=== PATIENT | female | born 1955 | race Caucasian/White ===

== ENCOUNTER 2020-01-10 15:28 | Emergency (ER) | payer BC, SELFPAY ==
--- NOTE | ~2020-01-10 | XR_ITS ---
EXAMINATION: XR shoulder RT min 2V DATE: 01/10/2020 16:27 INDICATION: Right shoulder pain. TECHNIQUE: 3 views of right shoulder were obtained. COMPARISON: None. FINDINGS: Bone alignment is normal. No fracture. There is mild osteoarthritis of glenohumeral joint a nd severe osteoarthritis of the acromioclavicular joint. There is calcific tendinitis of right rotato r cuff. IMPRESSION: 1. Polyarticular osteoarthritis. 2. Calcific tendinitis of right rotator cuff. Reviewed, dictated and finalized at location A.
[2020-01-10 15:43] VITALS: BP 133/86; PULSE 80; RESP 18; TEMP 36.6; O2SAT 98
--- NOTE | 2020-01-10 15:49 | ED.UPPEXIN ---
HPI - Extremity Injury (Upper) General Chief Complaint: Extremity Injury, Upper Stated Complaint: pain in right shoulder Time Seen by Provider: 01/10/20 15:55 Source: patient and RN notes reviewed Mode of arrival: ambulatory Limitations: no limitations History of Present Illness HPI narrative: 64-year-old female presents with concern for right shoulder pain. She reports pain is been present for a week and has been worsening. Reports pain with range of motion, decreased strength. She denies injury or trauma. Reports pain is in the joint and radiates down the right arm. Reports pain is exacerbated with any movement. Reports she has been taking anti-inflammatories with little to no relief. MD complaint: injury to: right and shoulder Related Data Home Medications Medication Instructions Recorded Confirmed Flonase Allergy Relief 01/10/20 amitriptyline 01/10/20 bupropion HCl PO 01/10/20 buspirone mg 01/10/20 cyclobenzaprine mg 01/10/20 duloxetine mg PO 01/10/20 levothyroxine 01/10/20 ocrelizumab [Ocrevus] 600 mg IV [id number] 01/10/20 01/10/20 telmisartan-hydrochlorothiazid tablet 01/10/20 valacyclovir 01/10/20 Allergies Allergy/AdvReac Type Severity Reaction Status Date / Time adhesive Allergy Mild Verified 07/08/19 08:09 bacitracin Allergy Mild Verified 07/08/19 08:09 gramicidin D Allergy Mild Verified 07/08/19 08:09 neomycin Allergy Mild Verified 07/08/19 08:09 Penicillins Allergy Mild Verified 07/08/19 08:09 polymyxin B Allergy Mild Verified 07/08/19 08:09 Review of Systems Review of Systems: Narrative: CONSTITUTIONAL: Denies malaise, chills, sweats, or fever. CARDIOVASCULAR: Denies chest pain, palpitations, or edema. RESPIRATORY: Denies cough or dyspnea. SKIN: Denies redness or bruising MUSCULOSKELETAL: Reports right shoulder joint pain that radiates to the right arm NEUROLOGIC: Denies numbness, weakness All systems reviewed & are unremarkable except as noted in HPI and below PMFSH Family History Family History (Updated 01/20/17 @ 23:56 by DOCTOR UNKNOWN) Mother Hypertension, Onset Age: 200 Family history of elevated blood lipids Patient's mother is Father Family history of elevated blood lipids Family history of coronary artery disease, Onset Age: 197 Patient's father is Sibling Family history of malignant neoplasm of breast in first degree relative Social History Social History Second hand tobacco smoke exposure: No Smoking end date: 10/16/90 Alcohol intake: current Comments At time of signature, agree with nursing past medical, surgical, social and family history. There is no relevant family history pertinent to the presenting complaint Exam Narrative: Exam Narrative: GENERAL: Well-appearing, well-nourished, and in no acute distress. HEAD: Normocephalic, atraumatic. EYES: PERRLA, conjunctivae clear NECK: Supple. CHEST: Speaks in full sentences. No respiratory distress. HEART: Regular rate and rhythm. Normal and equal peripheral pulses. EXTREMITIES: Right shoulder and right arm normal sensation, no edema. Limited range of motion right shoulder. 3/5 strength with shoulder flexion and extension. Normal sensation with sensitivity to light touch and pain. No open wounds, no skin tenting, no devitalized tissue or atrophy, no trophic changes, no ecchymosis, no obvious deformity, alignment normal, no point tenderness, nearby joints and structures intact. Distal pulses palpable and equal bilaterally, skin warm, dry, pink. Capillary refill less than 3 seconds. SKIN: Warm, dry, no rash. NEURO: Alert and oriented x3. PSYCH: Normal mood and affect Course Course Emergency Course: Patient is aware of diagnosis, understands and agrees to treatment plan. Anticipatory guidance given. Patient agrees to follow-up as directed and is aware of reasons to seek care at the emergency department. Portions of this record may have been created with
== END 2020-01-10 16:43 | disposition home or self-care (01) ==
PROVIDERS: Emergency Provider Nurse Practitioner; PCP Internal Medicine
DX: M75.31 Calcific tendinitis of right shoulder (principal); G35 Multiple sclerosis; I10 Essential (primary) hypertension; M19.90 Unspecified osteoarthritis, unspecified site
CPT/HCPCS: 73030; 99213; A4565; G0463

== ENCOUNTER 2020-06-26 15:45 | Emergency (ER) | payer BC, SELFPAY ==
--- NOTE | ~2020-06-26 | CT_ITS ---
EXAMINATION: CT abdomen pelvis wo con EXAM DATE: 06/26/2020 18:54 INDICATION: Kidney stones. TECHNIQUE: Spiral CT of the abdomen and pelvis was performed without contrast. Axial, coronal and sag ittal images were reviewed. The dose-length product (DLP) for this examination was 1218.41 mGy-cm. The exposure was tailored according to patient size (auto mA exposure control), and iterative reconst ruction (ASIR) was used as additional dose reduction technique. There is no prior study for comparis on. FINDINGS: At the anterior aspect of the bladder base there is a partially peripherally calcified soft tissue mass appears to be arising from the wall measuring 2.0 cm. No other bladder masses or calcifi cations are identified. Cystoscopy is indicated to evaluate possibility of transitional cell cancer, although that histology typically does not calcify and other histology should be considered. There is no nephrolithiasis or hydronephrosis. The uterus is anteverted and morphologically normal. The liver, spleen, adrenal glands and pancreas are unremarkable. There are cholecystectomy clips. Ther e is no retroperitoneal or pelvic lymphadenopathy. The appendix is normal. The stomach and small bowel are unremarkable. There is expected amount of c olonic stool. No free intraperitoneal gas. The heart is normal in size. There are no pericardial or pleural effusions. The lung bases are unremarkable. Chronic mild compression fracture of T12. IMPRESSION: 1. Anterior bladder base 2 cm mass; recommend cystoscopy. 2. No nephrolithiasis, hydronephrosis or acute intra-abdominal findings. Reviewed, dictated and finalized at location A.
[2020-06-26 15:52] VITALS: BP 122/65; PULSE 82; RESP 17; TEMP 36.2; O2SAT 100
[2020-06-26 16:06] LABS: Basophils Percent Auto 0.4 % (0.2-1.2); Eosinophils Absolute Auto 0.2 K/mm3 (0-0.3); Eosinophils Percent Auto 2.7 % (0-4.4); Hematocrit 42.6 % (37.0-47.0); Hemoglobin 14.5 g/dL (12.0-15.0); Immature Granulocyte Absolute 0.04 K/mm3 (0.00-0.031); Immature Granulocyte Percent A 0.5 % (0-0.5); Lymphocytes Absolute Auto 0.83 K/mm3 (0.9-3.2); Lymphocytes Percent Auto 10.1 % (18.3-44.2); Mean Corpuscular Hemoglobin 30.7 pg (26-34); Mean Corpuscular Volume 90.3 fl (80-100); Mean Platelet Volume 9.8 fl (7.4-10.4); Monocytes Absolute Auto 0.9 K/mm3 (0.1-0.6); Monocytes Percent Auto 10.4 % (2.6-8.5); Neutrophils Absolute Auto 6.2 K/mm3 (1.3-6.7); Neutrophils Percent Auto 75.9 % (45.5-73.1); Platelet Count Result 233 k/mm3 (150-375); Red Blood Count 4.72 M/mm3 (4.2-5.4); Red Cell Distribution Width 12.5 % (11.5-14.5); White Blood Count 8.2 K/mm3 (4.5-10.0)
[2020-06-26 16:17] LABS: Anion Gap 6 mmol/L (8-16); Blood Urea Nitrogen 20 mg/dL (7-17); Calcium 9.7 mg/dL (8.4-10.2); Carbon Dioxide 30 mmol/L (22-30); Chloride 102 mmol/L (98-107); Estimated CRCL calculation 53 ml/min; Estimated Glomerular Filt Rate 50; Glucose 100 mg/dL (65-105); Potassium 3.8 mmol/L (3.4-5.0); Sodium 138 mmol/L (137-145)
[2020-06-26 17:24] LABS: Add Urine Microscopic? YES; Appearance Urine Cloudy (Clear); Bacteria Urine Trace /hpf; Bilirubin Urine Negative (Negative); Blood Urine 3+ (Negative); Color Urine Yellow (Yellow); Glucose Urine UA Negative (Negative); Ketones Urine Negative (Negative); Leukocyte Esterase Ur Negative LEU/UL (Negative); Mucus Urine Rare /lpf; Nitrate Urine Negative (Negative); Protein Urine 1+ mg/dL (Negative); RBC Urine >75 /hpf (0-2); Specific Grav Ur 1.014 (1.001-1.035); Squamous Epithelial Cell Urine Few /hpf (Few); Urobilinogen Urine Negative mg/dL (<2.0); WBC Urine 16-20 /hpf
[2020-06-26 18:20] VITALS: BP 136/88; PULSE 78; RESP 98
--- NOTE | 2020-06-26 19:38 | ED.GENADULT ---
HPI - General Adult General Chief complaint: Back Pain/Injury Stated complaint: kidney stone Time Seen by Provider: 06/26/20 18:32 Source: patient Mode of arrival: ambulatory Limitations: no limitations History of Present Illness HPI narrative: 64 years old white female brought up this morning with dark urine. Then referred to the emergency room by her family physician to rule out the possibility of kidney stone because her UA was normal. Patient also complaining of intermittent lower back pain over 1 week. Patient been packing to moving lately. History of MS. Patient is not on any blood thinner. Related Data Home Medications Medication Instructions Recorded Confirmed Flonase Allergy Relief 01/10/20 amitriptyline 01/10/20 bupropion HCl PO 01/10/20 buspirone mg 01/10/20 cyclobenzaprine mg 01/10/20 duloxetine mg PO 01/10/20 levothyroxine 01/10/20 ocrelizumab [Ocrevus] 600 mg IV [id number] 01/10/20 01/10/20 telmisartan-hydrochlorothiazid tablet 01/10/20 valacyclovir 01/10/20 Allergies Allergy/AdvReac Type Severity Reaction Status Date / Time adhesive Allergy Mild Unknown Verified 06/26/20 15:54 bacitracin Allergy Mild Unknown Verified 06/26/20 15:54 gramicidin D Allergy Mild Unknown Verified 06/26/20 15:54 neomycin Allergy Mild Unknown Verified 06/26/20 15:54 Penicillins Allergy Mild Unknown Verified 06/26/20 15:54 polymyxin B Allergy Mild Unknown Verified 06/26/20 15:54 Review of Systems Review of Systems: Narrative: CONSTITUTIONAL: Denies fever, chills, or sweats. EYES: Denies visual changes, redness, or discharge. ENT: Denies rhinorrhea, congestion, sore throat, or otalgia. CARDIOVASCULAR: Denies chest pain, palpitations, or edema. RESPIRATORY: Denies cough or dyspnea. GASTROINTESTINAL: Denies abdominal pain, nausea, vomiting, or diarrhea. GENITOURINARY: Denies dysuria or hematuria. SKIN: Denies rash or itching. MUSCULOSKELETAL: Denies back pain, joint pain, or myalgia. NEUROLOGIC: Denies headache, numbness, or weakness. PSYCHIATRIC: Denies anxiety or depression. [facility] Past Medical History Medical History Multiple sclerosis Family History Family History Mother Hypertension, Onset Age: 200 Family history of elevated blood lipids Patient's mother is Father Family history of elevated blood lipids Family history of coronary artery disease, Onset Age: 197 Patient's father is Sibling Family history of malignant neoplasm of breast in first degree relative Social History Social History Second hand tobacco smoke exposure: No Smoking end date: 10/16/90 Alcohol intake: current Gender identity (if verbalized by the patient): Female Exam Narrative: Exam Narrative: General appearance: Well-developed, well-nourished Skin: Normal color Head: Normocephalic, nontraumatic Eyes: Clear conjunctiva ENT: Oropharynx normal, ears normal, nose normal Neck: Supple, nontender Chest and respiratory: Airway patent, no respiratory distress, no accessory muscle use Heart: Regular rate/rhythm Abdomen: Soft, nontender, no organomegaly, quiet bowel sounds Vascular: Normal peripheral pulses, normal capillary refill. 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
[2020-06-26 20:00] VITALS: BP 134/77; PULSE 79; RESP 20; O2SAT 97
== END 2020-06-26 20:03 | disposition home or self-care (01) ==
PROVIDERS: Emergency Medicine; Emergency Provider Emergency Medicine; PCP Internal Medicine
DX: N32.9 Bladder disorder, unspecified (principal); R31.9 Hematuria, unspecified; M54.5 Low back pain; G35 Multiple sclerosis
CPT/HCPCS: 36415; 74176; 80048; 81001; 85025; 87086; 99284

== ENCOUNTER 2020-07-20 19:14 | Emergency (ER) | payer BC, SELFPAY ==
[2020-07-20 19:42] VITALS: BP 134/74; PULSE 97; RESP 14; TEMP 37.1; O2SAT 100
[2020-07-20 20:08] VITALS: BP 146/78; PULSE 64; RESP 17; O2SAT 98
[2020-07-20 21:06] LABS: Add Urine Microscopic? YES; Appearance Urine Cloudy (Clear); Bilirubin Urine Negative (Negative); Blood Urine 3+ (Negative); Color Urine Red (Yellow); Glucose Urine UA Negative (Negative); Ketones Urine Negative (Negative); Leukocyte Esterase Ur 3+ LEU/UL (Negative); Nitrate Urine Positive (Negative); Protein Urine 2+ mg/dL (Negative); Specific Grav Ur 1.012 (1.001-1.035); Urobilinogen Urine Negative mg/dL (<2.0)
[2020-07-20 21:10] LABS: Bacteria Urine 2+ /hpf; RBC Urine >75 /hpf (0-2); Squamous Epithelial Cell Urine Rare /hpf (Few); WBC Urine 0-3 /hpf (0-3)
--- NOTE | 2020-07-20 21:50 | ED.FEMALEGU ---
HPI - Female Genitourinary General Chief complaint: Urogenital-Female Stated complaint: can't empty bladder Time Seen by Provider: 07/20/20 20:14 History of Present Illness HPI Narrative: Patient is a 64-year-old female who presents the ER with urinary frequency. Ongoing for last couple days since patient had cystoscopy to have a bladder tumor visualized by urology. She notes pink urine which is been normal for her since discovery of her bladder tumor. She has additional imaging scheduled for tomorrow. She then will have a surgical excision in August. Reports has intermittent lower abdominal discomfort related to this. No overt dysuria but does have a deeper pain when she urinates. Does not seem to have any inability to void. Related Data Home Medications Medication Instructions Recorded Confirmed Flonase Allergy Relief 01/10/20 amitriptyline 01/10/20 bupropion HCl PO 01/10/20 buspirone mg 01/10/20 cyclobenzaprine mg 01/10/20 duloxetine mg PO 01/10/20 levothyroxine 01/10/20 ocrelizumab [Ocrevus] 600 mg IV [id number] 01/10/20 01/10/20 telmisartan-hydrochlorothiazid tablet 01/10/20 valacyclovir 01/10/20 Allergies Allergy/AdvReac Type Severity Reaction Status Date / Time adhesive Allergy Mild Unknown Verified 07/20/20 20:12 bacitracin Allergy Mild Unknown Verified 07/20/20 20:12 gramicidin D Allergy Mild Unknown Verified 07/20/20 20:12 neomycin Allergy Mild Unknown Verified 07/20/20 20:12 Penicillins Allergy Mild Unknown Verified 07/20/20 20:12 polymyxin B Allergy Mild Unknown Verified 07/20/20 20:12 Review of Systems Constitutional: Constitutional: Denies chills, Denies fatigue and Denies fever(s) Gastrointestinal: Gastrointestinal: Denies abdominal pain, Denies nausea and Denies vomiting Genitourinary: Genitourinary: Reports hematuria, Reports nocturia, Denies dysuria and Denies flank pain PMFSH Past Medical History Medical History (Updated 07/20/20 @ 21:56 by Sergio Perry MD) Bladder tumor Multiple sclerosis Surgical History Surgical History (Updated 07/20/20 @ 21:52 by Sergio Perry MD) H/O cystoscopy Social History Social History Second hand tobacco smoke exposure: No Smoking end date: 10/16/90 Alcohol intake: current Gender identity (if verbalized by the patient): Female Exam Narrative: Exam Narrative: GENERAL: Well-appearing, well-nourished, and in no acute distress. HEAD: Normocephalic, atraumatic. CHEST: Clear to auscultation. No respiratory distress. HEART: Regular rate and rhythm. Normal peripheral pulses. ABDOMEN: Soft, nontender, nondistended. EXTREMITIES: Normal range of motion. No edema NEURO: Alert and oriented x3. Course Course Emergency Course: Patient informed of results. Will send for culture. Suspect patient is having some bladder spasm due to instrumentation. We will give her dose of Ditropan here. Patient does have leukocyte Estrace with nitrate and positive bacteria but no white blood cells, will place patient on short course of antibiotics and send urine for culture. Vital Signs Vital signs: Vital Signs Temperature 98.8 F 07/20/20 19:42 Pulse Rate 97 07/20/20 19:42 Respiratory Rate 14 07/20/20 19:42 Blood Pressure 134/74 07/20/20 19:42 Pulse Oximetry 100 07/20/20 19:42 Temperature 98.8 F 07/20/20 19:42 Pulse Rate 64 07/20/20 20:08 Respiratory Rate 17 07/20/20 20:08 Blood Pressure 146/78 H 07/20/20 20:08 Pulse Oximetry 98 07/20/20 20:08 MDM - Female Genitourinary Lab Data Labs: Lab Results 07/20/20 Range/Units 20:42 Urine Color Red H (Yellow) Urine Appearance Cloudy H (Clear) Urine pH 6.0 (5.0-9.0) Ur Specific [place] 1.012 (1.001-1.035) Urine Protein 2+ H (Negative) mg/dL Urine Glucose (UA) Negative (Negative) mg/dL Urine Ketones Negative (Negative) mg/dL Ur Blood (Man) 3+ H (Negative) Urine Nitra
[2020-07-20 22:00] VITALS: BP 133/78; PULSE 66; RESP 20; O2SAT 96
[2020-07-20] MEDS: NITROFURANTOIN MONOHYD MACROCR 100 MG CAP PO (22:00)
[2020-07-20] MEDS: OXYBUTYNIN CHLORIDE 5 MG TABLET PO (22:00)
== END 2020-07-20 22:00 | disposition home or self-care (01) ==
PROVIDERS: Emergency Provider Emergency Medicine; PCP Internal Medicine
DX: N39.0 Urinary tract infection, site not specified (principal); G35 Multiple sclerosis; Z87.891 Personal history of nicotine dependence
CPT/HCPCS: 81001; 99283; A9270

== ENCOUNTER → 2020-07-21 12:54 | Outpatient (CLI) | payer BC, SELFPAY ==
--- NOTE | ~2020-07-21 | XR_ITS ---
EXAMINATION: XR abdomen/kub 1V INDICATION: Bladder neoplasm of uncertain malignant potential TECHNIQUE: Supine views of the abdomen were obtained on 2 radiographs. COMPARISON: None FINDINGS: There is mild elevation of the right hemidiaphragm. Cholecystectomy clips are noted. The denise wel gas pattern is normal. There is moderate osteoarthritis of the hips. No abnormal calcification is identified. IMPRESSION: 1. No acute findings. Reviewed, dictated and finalized at location A. IMPRESSION: 1. No acute findings.
--- NOTE | ~2020-07-21 | CT_ITS ---
EXAMINATION: CT abdomen pelvis wo/w con DATE: 07/21/2020 13:47 INDICATION: Bladder cancer. Hematuria. Lower abdominal pressure. TECHNIQUE: Computed tomography (CT) of the abdomen and pelvis was performed without intravenous contr ast. CT of the abdomen and pelvis was then performed with a total of 130 mL Omnipaque-350 intravenous contrast using a double-bolus technique for simultaneous opacification of the renal parenchyma and r enal collecting system. Automated exposure control and iterative reconstruction technique were employ ed. The dose-length product was 1997.62 mGy-cm. COMPARISON: 06/26/20 FINDINGS: Unchanged minimal atelectasis/scarring at the lingula and right middle lobe. Heart size is normal. No pericardial or pleural effusion. Cholecystectomy clips at the gallbladder fossa. Liver, spleen, panc reas and bilateral adrenal glands are normal. 10 mm cyst at the inferior left kidney. No urolithiasis or hydronephrosis. The bilateral renal collecting systems and ureters are opacified in their entiret y and demonstrate no urothelial irregularities. There is a nonmobile 2.1 x 2.0 x 1.7 cm intraluminal mass arising from the anterior inferior wall of the bladder with small amount of peripheral calcifica tion which is concerning for bladder cancer. There are couple additional more densely calcified mobil e stones which are seen in the dependent posterior aspect of the bladder on the precontrast images an d surrounded by contrast at the dependent anterior aspect of the bladder on the post contrast images. Bowels including appendix are normal. Anteverted uterus and bilateral adnexa are unremarkable. No fr ee intraperitoneal gas or fluid. No pathologically enlarged abdominal or pelvic lymphadenopathy. 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 IMPRESSION: 1. 2 cm mass at the anterior base of the bladder concerning for bladder cancer. No evident metastatic disease. 2. A couple mobile stones in the bladder. No more proximal urolithiasis. 3. No acute intra-abdominal/pelvic process. Reviewed, dictated and finalized at location A.
== END ==
PROVIDERS: PCP Internal Medicine; Visit Provider Urology
DX: D41.4 Neoplasm of uncertain behavior of bladder (principal); N21.0 Calculus in bladder
CPT/HCPCS: 74018; 74178; Q9967

== ENCOUNTER 2020-08-11 09:46 | Outpatient (CLI) | payer BC, SELFPAY ==
--- NOTE | 2020-08-11 09:49 | ECG_ITS ---
Measurements Intervals [place] Rate: 79 P: 55 PA: 176 QRS: 34 QRSD: 74 T: 53 QT: 358 QTc: 412 Interpretive Statements SINUS RHYTHM BASELINE ARTIFACT- I, II, III, AVR, AVL, AVF NORMAL ECG Electronically Signed On 08-11-2020 11:46:59 CDT by Mauro Whyte D.O.
[2020-08-11 10:49] LABS: Anion Gap 4 mmol/L (8-16); Blood Urea Nitrogen 17 mg/dL (7-17); Calcium 9.3 mg/dL (8.4-10.2); Carbon Dioxide 36 mmol/L (22-30); Chloride 100 mmol/L (98-107); Estimated Glomerular Filt Rate 50; Glucose 114 mg/dL (65-105); Potassium 3.5 mmol/L (3.4-5.0); Sodium 140 mmol/L (137-145)
== END 2020-08-11 09:47 | disposition home or self-care (01) ==
LOC: ANHSURGERY 09:49
PROVIDERS: Anesthesiology; PCP Internal Medicine; Visit Provider Urology
DX: Z79.899 Other long term (current) drug therapy (principal); I10 Essential (primary) hypertension; D49.4 Neoplasm of unspecified behavior of bladder; Z01.818 Encounter for other preprocedural examination
CPT/HCPCS: 36415; 80048; 87077; 87086; 87088; 87186; 93005

== ENCOUNTER 2020-08-21 01:00 | Outpatient (CLI) | payer BC, SELFPAY ==
[2020-08-21 20:27] LABS: SARS-CoV-2 RNA PCR Negative
== END 2020-08-21 01:01 | disposition home or self-care (01) ==
LOC: ANHCOVIDDT 01:00
PROVIDERS: PCP Internal Medicine; Visit Provider Urology
DX: Z01.812 Encounter for preprocedural laboratory examination (principal); Z20.828 Contact with and (suspected) exposure to other viral communicable diseases
CPT/HCPCS: 87635; C9803; U0003

== ENCOUNTER 2020-08-24 00:57 | Day surgery (SDC) | payer BC, SELFPAY ==
[2020-08-10 15:23] VITALS: BMI 33.9
--- NOTE | 2020-08-22 11:06 | PM.IMHP ---
H&P: HPI History of Present Illness Date/Time: 08/22/20 11:06 Chief complaint: Bladder Neoplasm Narrative: Ena Duong is a 65 year old female with a bladder tumor Review of Systems Review of Systems: All systems reviewed & are unremarkable except as noted in HPI and below PMFSH Past Medical History Medical History (Updated 08/22/20 @ 11:08 by Bull Cook MD) Bladder tumor Multiple sclerosis Surgical History Surgical History (Updated 07/20/20 @ 21:52 by Sergio Perry MD) H/O cystoscopy Family History Family History Mother Hypertension, Onset Age: 200 Family history of elevated blood lipids Patient's mother is Father Family history of elevated blood lipids Family history of coronary artery disease, Onset Age: 197 Patient's father is Sibling Family history of malignant neoplasm of breast in first degree relative Social History Social History Smoking packs per day: 0.3 Smoking cigarettes per day: 6.0 Years smoked: 12 Smoking pack-years: 3.60 Smoking status: Former smoker Tobacco type: cigarettes Second hand tobacco smoke exposure: No Smoking end date: 10/16/90 Additional smoking assessment comments: QUIT 40 YEARS AGO Alcohol intake: current Gender identity (if verbalized by the patient): Female Spiritual care concerns: No Meds Home Medications and Allergies Home Medications Medication Instructions Recorded Confirmed Type amitriptyline 25 mg PO BID 01/10/20 08/10/20 History bupropion HCl 200 mg PO DAILY 01/10/20 08/10/20 History buspirone 15 mg PO BID 01/10/20 08/10/20 History duloxetine 60 mg PO DAILY 01/10/20 08/10/20 History levothyroxine 150 mcg PO DAILY 01/10/20 08/10/20 History ocrelizumab [Ocrevus] 600 mg IV [id number] 01/10/20 08/10/20 History telmisartan-hydrochlorothiazid 1 tablet PO DAILY 01/10/20 08/10/20 History valacyclovir 1 mg PO BID PRN 01/10/20 08/10/20 History calcium carbonate-vitamin D3 1 tablet PO DAILY 08/10/20 08/10/20 History [Calcium 600 + D(3)] cholecalciferol (vitamin D3) 50 mcg PO DAILY 08/10/20 08/10/20 History [Vitamin D3] cyanocobalamin (vitamin B-12) 500 mcg PO DAILY 08/10/20 08/10/20 History [Vitamin B-12] Allergies Allergy/AdvReac Type Severity Reaction Status Date / Time adhesive Allergy Mild Rash Verified 08/10/20 15:26 bacitracin Allergy Mild INFLAMMATIO Verified 08/10/20 15:26 N gramicidin D Allergy Mild INFLAMMATIO Verified 08/10/20 15:26 N neomycin Allergy Mild INFLAMMATIO Verified 08/10/20 15:26 N Penicillins Allergy Mild Hives, Verified 08/10/20 15:26 VOMITING polymyxin B Allergy Mild INFLAMMATIO Verified 08/10/20 15:26 N Exam Const: General: cooperative and healthy appearing HENMT: Head: normal to inspection Resp: Effort & Inspection: normal respiratory effort GI: Inspection: normal to inspection Back/Spine/Pelvis: Back: no CVA tenderness Skin: General skin exam: normal color Assessment and Plan Assessment and plan (1) Neoplasm, bladder: Code(s): D49.4 - Neoplasm of unspecified behavior of bladder Status: Acute Assessment and Plan: TURBT
[2020-08-24] VITALS (7 sets, daily range): BP systolic 122–158; BP diastolic 64–102; PULSE 63–79; RESP 11–22; TEMP 36–36.4; O2SAT 97–100
--- NOTE | 2020-08-24 09:58 | WPDHPUPDATE1 ---
History and Physical Update Update Date/Time: 08/24/20 09:58 History and Physical has been reviewed, including an updated exam of the patient. There are NO changes in the patient's condition. Risks, benefits, and alternatives have been discussed and questions answered. Patient agrees to proceed with procedure.
[2020-08-24] MEDS: LACTATED RINGERS 1,000 ML 30 ML IV CONT (10:30)
--- NOTE | 2020-08-24 12:00 | SUR.PREOP ---
PT REFUSED PREOP WEIGH IN
--- NOTE | 2020-08-24 12:54 | WPDANESEPPF ---
Anes - Initial Pre Proc Eval Procedure: Operation Date: 08/24/20 12:00 Proposed Procedures p Transurethral Resection Bladder Tumor - Bull Cook MD Date/Time: 08/24/20 12:54 Surgeon: Bull Cook MD Pre Op Diagnosis: Bladder Neoplasm Patient Data Age: 65 Gender: F Height: 1.68 m Weight: 96.5 kg Last Vital Signs Temp 36.0 C L 08/24/20 10:30 Pulse 79 08/24/20 10:30 Resp 18 08/24/20 10:30 BP 138/64 08/24/20 10:30 Pulse Ox 100 08/24/20 10:30 Allergies Allergy/AdvReac Type Severity Reaction Status Date / Time adhesive Allergy Mild Rash Verified 08/24/20 11:19 bacitracin Allergy Mild INFLAMMATIO Verified 08/24/20 11:19 N gramicidin D Allergy Mild INFLAMMATIO Verified 08/24/20 11:19 N neomycin Allergy Mild INFLAMMATIO Verified 08/24/20 11:19 N Penicillins Allergy Mild Hives, Verified 08/24/20 11:19 VOMITING polymyxin B Allergy Mild INFLAMMATIO Verified 08/24/20 11:19 N Home Medications Medication Instructions Recorded Confirmed Type amitriptyline 25 mg PO BID 01/10/20 08/24/20 History bupropion HCl 200 mg PO DAILY 01/10/20 08/24/20 History buspirone 15 mg PO BID 01/10/20 08/24/20 History duloxetine 60 mg PO DAILY 01/10/20 08/24/20 History levothyroxine 150 mcg PO DAILY 01/10/20 08/24/20 History ocrelizumab [Ocrevus] 600 mg IV [id number] 01/10/20 08/24/20 History telmisartan-hydrochlorothiazid 1 tablet PO DAILY 01/10/20 08/24/20 History valacyclovir 1 mg PO BID PRN 01/10/20 08/24/20 History calcium carbonate-vitamin D3 1 tablet PO DAILY 08/10/20 08/24/20 History [Calcium 600 + D(3)] cholecalciferol (vitamin D3) 50 mcg PO DAILY 08/10/20 08/24/20 History [Vitamin D3] cyanocobalamin (vitamin B-12) 500 mcg PO DAILY 08/10/20 08/24/20 History [Vitamin B-12] Patient hx anesthesia problems: none Family hx anesthesia problems: none PMFSH Past Medical History Medical History (Updated 08/24/20 @ 12:54 by Sherman Null MD) Anxiety Bladder tumor Depression HTN (hypertension) Multiple sclerosis Obesity Osteoarthritis Surgical History Surgical History (Updated 07/20/20 @ 21:52 by Sergio Perry MD) H/O cystoscopy Family History Family History Mother Hypertension, Onset Age: 200 Family history of elevated blood lipids Patient's mother is Father Family history of elevated blood lipids Family history of coronary artery disease, Onset Age: 197 Patient's father is Sibling Family history of malignant neoplasm of breast in first degree relative Social History Social History Smoking packs per day: 0.3 Smoking cigarettes per day: 6.0 Years smoked: 12 Smoking pack-years: 3.60 Smoking status: Former smoker Tobacco type: cigarettes Second hand tobacco smoke exposure: No Smoking end date: 10/16/90 Additional smoking assessment comments: QUIT 40 YEARS AGO Alcohol intake: current Gender identity (if verbalized by the patient): Female Spiritual care concerns: No Anes - Eval Final PreProcedure Day of Procedure 08/24/20 12:54 Patient weight: obese Heart: regular rate and rhythm Lungs: clear to auscultation and normal air movement Airway: Mallampati scale class II Neurological: alert and oriented Last oral intake: >/= 8 hours ASA classification: III Emergent: no Anesthetic plan: proceed Anesthesia type and monitoring: general LMA Informed Consent: The patient's anesthetic plan and its attendant risks and benefits were discussed with the patient/family/POA. Questions were solicited and answers provided to the satisfaction of the patient/family/POA.
[2020-08-24] MEDS: levoFLOXacin 500 MG/D5W 100 ML 500 MG/100 ML BAG 100 MG IVPB (13:09)
[2020-08-24] MEDS: LIDOCAINE HCL 2% GEL UROJET 10 ML PKG MUCOUS MEM (13:43)
--- NOTE | 2020-08-24 14:17 | PM.PROC ---
Procedure Note - Detailed Date of procedure: 08/24/20 Pre-op diagnosis: Bladder Neoplasm Post-op diagnosis: same Procedure performed: Transurethral resection of bladder tumor. 3 cm removal of bladder stones random bladder biopsies Description of procedure: she was correctly identified and informed consent obtained. She from the operating room. She was given general anesthesia. She was prepped and draped in a sterile fashion. Time-out performed. I examined the bladder. She had a sessile appearing tumor on the dome of the bladder measuring 3 cm. We did not have a low-grade appearance. There are also 3 bladder stones within the bladder. The rest of her bladder was normal without other abnormalities or signs of carcinoma in situ. I decided to perform random bladder biopsies. I chose 4 sites. The right and left lateral wall and the right and left base. These areas were fulgurated. I then proceeded to resect the tumor. I used. Cut at an energy of 160. I resected the tumor all the way to the base. I could see some muscular fibers. There is no signs of fat or perforation. I then did deep biopsies and sent this as a separate specimen. I fulgurated the entire area to assure there is no bleeding. I then used the resectoscope loop to remove the 3 large bladder stones. These were sent for a another specimen. I reexamined the bladder. There is no active bleeding. The tumor on the dome was completely resected. The random bladder biopsy sites showed no signs of bleeding. Both ureteral orifices were seen to excrete clear yellow urine. I drained the bladder she was awakened and transferred the PACU in stable condition Implants: 9 Anesthesia: GLMA Surgeon: Bull Cook MD Estimated blood loss (mL): 2 Drains: No Packing: No Pathology: yes Complications: No immediate complications Condition: stable Disposition: PACU
--- NOTE | 2020-08-24 15:28 | SUR.PHASEI ---
DR. AGUAYO AWARE OF PT'S ELEVATED BP. PT INSTRUCTED TO TAKE BP MED WHEN SHE GETS HOME.
== END 2020-08-24 15:41 | disposition home or self-care (01) ==
PROVIDERS: PCP Internal Medicine; Visit Provider Urology
PROC: 0TBB8ZZ Excision of Bladder, Via Natural or Artificial Opening Endoscopic (ICD-10-PCS; CPT 52235; principal; 2020-08-24 12:00)
DX: C67.1 Malignant neoplasm of dome of bladder (principal); N21.0 Calculus in bladder; I10 Essential (primary) hypertension; G35 Multiple sclerosis; Z87.891 Personal history of nicotine dependence; F41.9 Anxiety disorder, unspecified
CPT/HCPCS: 52235; 82365; 88300; 88305; A9270; C1758; J1100; J1956; J2405; J2704; J7120

== ENCOUNTER 2020-11-17 16:07 | Observation (INO) | payer BC, SELFPAY ==
[2020-11-17] VITALS (19 sets, daily range): BP systolic 148–156; BP diastolic 87–101; PULSE 70–94; RESP 12–20; TEMP 36.4; O2SAT 99–100; BMI 34.2
--- NOTE | ~2020-11-17 | CT_ITS ---
EXAMINATION: CTA brain carotid DATE: 11/17/2020 20:24 [employer]OT[facility] STRIPPER INDICATION: Dizziness and weakness TECHNIQUE: Computed tomographic angiography (CTA) of the head was performed without and with 100 mL O mnipaque-350 intravenous contrast. CTA of the neck was performed with intravenous contrast. The dose- length product was 1783.72 mGy-cm. Maximum intensity projection and volume rendered 3D-reconstruction s were created by the technologist on a separate workstation. Automated exposure control and iterativ e reconstruction technique were employed. COMPARISON: None. FINDINGS: HEAD CTA: Mild generalized atrophy. There are scattered mild periventricular and subcortical white ma tter changes, most likely related to small vessel ischemic disease (microangiopathy). No ventriculome courtney or midline shift. There is an enhancing mass along the inferior frontal lobes at the midline, li shannon extra-axial measuring up to 18 mm, most likely meningioma. Consider correlation with MRI. Parana sarahi sinuses and mastoids are pneumatized. No depressed skull fractures. There is no significant intracranial stenosis, occlusion or aneurysm. NECK CTA: No significant stenosis, aneurysm, occlusion or dissection. No2 lymphadenopathy. Lung apice s are unremarkable. There is less than 10%% stenosis of the proximal right internal carotid artery relative to normal dis aby artery lumen diameter (NASCET criteria). There is less than 10%% stenosis of the proximal left in ternal carotid artery relative to normal distal artery lumen diameter. IMPRESSION: 1. No significant vascular abnormality of the neck or intracranial vasculature. No significant stenos is, aneurysm, dissection or occlusion. 2: Enhancing mass along the inferior frontal lobes at the midline, likely extra-axial, measuring up t o 18 mm, most likely meningioma. Consider correlation with MRI. Reviewed, dictated and finalized at location A. ON STRIPPER IMPRESSION: 1. No significant vascular abnormality of the neck or intracranial vasculature. No significant stenosis, aneurysm, dissection or occlusion. 2: Enhancing mass along the inferior frontal lobes at the midline, likely extra -axial, measuring up to 18 mm, most likely meningioma. Consider correlation wit h MRI.
--- NOTE | 2020-11-17 16:35 | PC.NURSE ---
patient resting on stretcher. on stunner. waiting for further orders from provider.
--- NOTE | 2020-11-17 16:38 | ED.GENADULT ---
HPI - General Adult General Chief complaint: Weakness Stated complaint: weakness/diarrhea Time Seen by Provider: 11/17/20 16:22 Source: patient History of Present Illness HPI narrative: Patient is a 65 female complaining of moderate to severe generalized weakness for 1 week. She states that she is currently receiving chemo for bladder cancer. Her last treatment was 6 days ago. There is no alleviating or exacerbating factor. She fell twice recently due to weakness, but did not have any significant injury. She states that she also feels dizzy with room spinning sensation at times. She also feels confused at times. She denies any fever, chills, focal weakness or numbness. Related Data Home Medications Medication Instructions Recorded Confirmed Ocrevus 600 mg IV [id number] 01/10/20 11/17/20 amitriptyline 25 mg PO BID 01/10/20 11/17/20 bupropion HCl 200 mg PO DAILY 01/10/20 11/17/20 buspirone 15 mg PO BID 01/10/20 11/17/20 duloxetine 60 mg PO DAILY 01/10/20 11/17/20 levothyroxine 150 mcg PO DAILY 01/10/20 11/17/20 telmisartan-hydrochlorothiazid 1 tablet PO DAILY 01/10/20 11/17/20 calcium carbonate-vitamin D3 1 tablet PO DAILY 08/10/20 11/17/20 [Calcium 600 + D(3)] cholecalciferol (vitamin D3) 50 mcg PO DAILY 08/10/20 11/17/20 [Vitamin D3] cyanocobalamin (vitamin B-12) 500 mcg PO DAILY 08/10/20 11/17/20 [Vitamin B-12] ondansetron HCl 8 mg PO TID PRN 11/17/20 11/17/20 potassium chloride 40 meq PO DAILY 11/17/20 11/17/20 Allergies Allergy/AdvReac Type Severity Reaction Status Date / Time adhesive Allergy Mild Rash Verified 11/17/20 22:09 bacitracin Allergy Mild INFLAMMATIO Verified 11/17/20 22:09 N gramicidin D Allergy Mild INFLAMMATIO Verified 11/17/20 22:09 N neomycin Allergy Mild INFLAMMATIO Verified 11/17/20 22:09 N Penicillins Allergy Mild Hives, Verified 11/17/20 22:09 VOMITING polymyxin B Allergy Mild INFLAMMATIO Verified 11/17/20 22:09 N Sulfa (Sulfonamide Allergy Other Verified 11/17/20 22:09 Antibiotics) Review of Systems Constitutional: Constitutional: Denies chills, Denies fever(s), Denies headache(s) and Reports weakness Eyes: Eyes: Denies blurry vision ENT: Denies headache(s) and Denies neck pain Cardiovascular: Cardiovascular: Denies chest pain and Denies dyspnea Respiratory: Respiratory: Reports cough and Denies dyspnea Gastrointestinal: Gastrointestinal: Denies abdominal pain, Denies diarrhea, Denies nausea and Denies vomiting Genitourinary: Genitourinary: Denies hematuria and Denies dysuria Musculoskeletal: Musculoskeletal: Denies back pain and Denies neck pain Neurologic: Reports confusion, Reports dizziness, Reports frequent falls, Denies headache(s) and Reports weakness PMFSH Past Medical History Medical History (Updated 11/17/20 @ 23:20 by Sulema Sandhu MD) Anxiety Bladder tumor Depression HTN (hypertension) Multiple sclerosis Obesity Osteoarthritis Surgical History Surgical History H/O cystoscopy Family History Family History Mother Hypertension, Onset Age: 200 Family history of elevated blood lipids Patient's mother is Father Family history of elevated blood lipids Family history of coronary artery disease, Onset Age: 197 Patient's father is Sibling Family history of malignant neoplasm of breast in first degree relative Social History Social History Smoking packs per day: 0.5 Smoking cigarettes per day: 10.0 Years smoked: 15 Smoking pack-years: 7.50 Smoking status: Former smoker Tobacco type: cigarettes Second hand tobacco smoke exposure: Yes Smoking end date: 10/16/90 Additional smoking assessment comments: QUIT 40 YEARS AGO Alcohol intake: current Substance use: never Gender identity (if verbalized by t
[2020-11-17] MEDS: ONDANSETRON INJ 4 MG/2 ML VIAL IV PUSH (17:10)
[2020-11-17] MEDS: SODIUM CHLORIDE 0.9% IV 1,000 ML 999 ML IV CONT ×2 (17:10→19:54)
[2020-11-17 17:12] LABS: Hematocrit 35.7 % (37.0-47.0); Hemoglobin 12.7 g/dL (12.0-15.0); Mean Corpuscular HGB Conc 35.6 g/dl (32-36); Mean Corpuscular Hemoglobin 30.9 pg (26-34); Mean Corpuscular Volume 86.9 fl (80-100); Mean Platelet Volume 8.9 fl (7.4-10.4); Platelet Count Result 244 k/mm3 (150-375); Red Blood Count 4.11 M/mm3 (4.2-5.4); Red Cell Distribution Width 13.6 % (11.5-14.5); White Blood Count 6.8 K/mm3 (4.5-10.0)
[2020-11-17 17:21] LABS: Add Urine Microscopic? YES; Appearance Urine Clear (Clear); Bacteria Urine Trace /hpf; Bilirubin Urine Negative (Negative); Blood Urine Negative (Negative); Color Urine Yellow (Yellow); Glucose Urine UA Negative (Negative); Ketones Urine Negative (Negative); Leukocyte Esterase Ur Negative LEU/UL (Negative); Mucus Urine Rare /lpf; Nitrate Urine Negative (Negative); Protein Urine 1+ mg/dL (Negative); RBC Urine 0-2 /hpf (0-2); Specific Grav Ur 1.014 (1.001-1.035); Squamous Epithelial Cell Urine Few /hpf (Few); Urobilinogen Urine Negative mg/dL (<2.0); WBC Urine 0-3 /hpf
[2020-11-17 17:24] LABS: Alanine Aminotransferase 36 U/L (4-35); Albumin Level 3.5 g/dL (3.5-5.1); Alkaline Phosphatase 80 U/L (38-126); Anion Gap 4 mmol/L (8-16); Aspartate Amino Transferase 30 U/L (14-36); Bilirubin,Total 0.6 mg/dL (0.2-1.3); Blood Urea Nitrogen 37 mg/dL (7-17); Calcium 8.1 mg/dL (8.4-10.2); Carbon Dioxide 31 mmol/L (22-30); Chloride 100 mmol/L (98-107); Estimated CRCL calculation 39 ml/min; Estimated Glomerular Filt Rate 35; Glucose 99 mg/dL (65-105); Potassium 3.9 mmol/L (3.4-5.0); Sodium 135 mmol/L (137-145)
[2020-11-17 17:35] LABS: Band Neutrophils Percent 2 % (0-6); Lymphocytes Absolute Manual 0.95 K/mm3 (1.1-4.5); Lymphocytes Percent Manual 14 % (18-44); Metamyelocytes Percent 6 %; Monocytes Absolute Manual 0.34 K/mm3 (0.1-0.90); Monocytes Percent Manual 5 % (3-9); Neutrophils Absolute Manual 4.89 K/mm3 (1.7-7.2); Neutrophils Percent Manual 70 % (46-73); Platelet Estimate Adequate (Adequate); Total Cells Counted 100
[2020-11-17 17:36] LABS: Ovalocytes 1+ (NORMAL)
[2020-11-17 17:37] LABS: Eosinophils Absolute Manual 0.06 K/mm3 (0.02-0.5); Eosinophils Percent Manual 1 % (0-4); Myelocytes Percent 2 %
--- NOTE | 2020-11-17 19:03 | PC.NURSE ---
patient with call light on. states she just feels miserable but no specific complaints. per EMS on patient's arrival patient has felt this way after her chemo treatments in the past. waiting for CTA results. ice water given.
--- NOTE | 2020-11-17 19:30 | PC.NURSE ---
patient restless. assisted to sit in chair. c/o some nausea. feels awful. cannot decide what she needs or how she can get comfortable.
--- NOTE | 2020-11-17 19:54 | PC.NURSE ---
3rd liter of NS started. patient's now at bedside. patient placed back on BP and O2 monitors. has her sister calling her oncologist because she is not getting any answers .
--- NOTE | 2020-11-17 20:13 | PC.NURSE ---
have advised patient and her that patient has been given 3L of IVF while here. patient wants to eat. advised patient and that she has complained of nausea during this visit. reluctant to feed patient. will give sprite and crackers now. Dr. Sandhu aware.
--- NOTE | 2020-11-17 20:43 | PC.NURSE ---
patient has order for admission. eating crackers now. will give additional food if no further N/V. waiting for bed assignment upstairs.
--- NOTE | 2020-11-17 20:48 | PM.IMHP ---
H&P: HPI History of Present Illness Date/Time: 11/17/20 20:48 Chief Complaint: Generalized weakness Narrative: This is an obese 65 year old female with known stage II bladder cancer and multiple sclerosis who is currently undergoing chemotherapy [facility]. She received her third dose of chemotherapy 6 days ago and since then she has been very weak and nauseated. Associated symptoms include dizziness. She has had multiple recent falls at home and today she felt she wasn't strong enough to get around at home. She denies any fevers, chills, headache, blurry vision, cough, shortness of breath, chest pain, abdominal pain, dysuria, hematuria, rectal bleeding, LE swelling, numbness, tingling, or focal weakness. She has had constipation and today had a hard time self administering an enema. The patient was evaluated and found to be mildly dehydrated with an elevated Cr. CT brain only demonstrated a meningioma which the patient has known about for years. ER provider has called and [facility] who doesn't think the patient necessarily needs to be transferred there at this time. We have been asked to admit the patient to the hospital for IV fluids and supportive care. No other complaints. Review of Systems Review of Systems: All systems reviewed & are unremarkable except as noted in HPI and below PMFSH Past Medical History Medical History Anxiety Bladder tumor Depression HTN (hypertension) Multiple sclerosis Obesity Osteoarthritis Surgical History Surgical History H/O cystoscopy Family History Family History Mother Hypertension, Onset Age: 200 Family history of elevated blood lipids Patient's mother is Father Family history of elevated blood lipids Family history of coronary artery disease, Onset Age: 197 Patient's father is Sibling Family history of malignant neoplasm of breast in first degree relative Social History Social History Smoking packs per day: 0.5 Smoking cigarettes per day: 10.0 Years smoked: 15 Smoking pack-years: 7.50 Smoking status: Former smoker Tobacco type: cigarettes Second hand tobacco smoke exposure: Yes Smoking end date: 10/16/90 Additional smoking assessment comments: QUIT 40 YEARS AGO Alcohol intake: current Substance use: never Gender identity (if verbalized by the patient): Female Spiritual care concerns: No Meds Home Medications and Allergies Home Medications Medication Instructions Recorded Confirmed Type Ocrevus 600 mg IV [id number] 01/10/20 11/17/20 History amitriptyline 25 mg PO BID 01/10/20 11/17/20 History bupropion HCl 200 mg PO DAILY 01/10/20 11/17/20 History buspirone 15 mg PO BID 01/10/20 11/17/20 History duloxetine 60 mg PO DAILY 01/10/20 11/17/20 History levothyroxine 150 mcg PO DAILY 01/10/20 11/17/20 History telmisartan-hydrochlorothiazid 1 tablet PO DAILY 01/10/20 11/17/20 History calcium carbonate-vitamin D3 1 tablet PO DAILY 08/10/20 11/17/20 History [Calcium 600 + D(3)] cholecalciferol (vitamin D3) 50 mcg PO DAILY 08/10/20 11/17/20 History [Vitamin D3] cyanocobalamin (vitamin B-12) 500 mcg PO DAILY 08/10/20 11/17/20 History [Vitamin B-12] phenazopyridine [Pyridium] 200 mg PO TID PRN 20 Days #30 08/24/20 11/17/20 Rx tablet ondansetron HCl 8 mg PO TID PRN 11/17/20 11/17/20 History potassium chloride 40 meq PO DAILY 11/17/20 11/17/20 History Allergies Allergy/AdvReac Type Severity Reaction Status Date / Time adhesive Allergy Mild Rash Verified 11/17/20 22:09 bacitracin Allergy Mild INFLAMMATIO Verified 11/17/20 22:09 Aruna martines
--- NOTE | 2020-11-17 21:14 | PC.NURSE ---
resting on stretcher. appears much more comfortable. denies needs. in room.
--- NOTE | 2020-11-17 21:21 | PC.NURSE ---
patient assigned to room 348. SBAR sent.
--- NOTE | 2020-11-17 21:28 | PC.NURSE ---
report called to Jody on 3rd floor. will transfer patient to [facility] via stretcher.
--- NOTE | 2020-11-17 22:00 | ADMGEN ---
This patient, Ena Duong, was admitted to Medical Room 348-01. Patient/family oriented to hospital policies and general routines including ID bracelet, bed and alarms, visiting hours, pain management, procedures, bathroom and other care routines, personal items, smoking policy, room service/diet, and visiting hours. Information on how to activate the Rapid Response Team has been discussed. Patient/Family are encouraged to report perceived risks to care and to ask questions if they do not understand what they are told or what they should do.
[2020-11-17] MEDS: SODIUM CHLORIDE 0.9% IV 1,000 ML 125 ML IV CONT (22:02)
[2020-11-18] MEDS: SODIUM CHLORIDE 0.9% IV 1,000 ML 125 ML IV CONT ×2 (05:42→14:08)
[2020-11-18 05:50] LABS: Basophils Percent Auto 0.2 % (0.2-1.2); Eosinophils Percent Auto 0.2 % (0-4.4); Hematocrit 30.3 % (37.0-47.0); Hemoglobin 10.6 g/dL (12.0-15.0); Immature Granulocyte Absolute 0.86 K/mm3 (0.00-0.031); Immature Granulocyte Percent A 15.8 % (0-0.5); Lymphocytes Absolute Auto 0.73 K/mm3 (0.9-3.2); Lymphocytes Percent Auto 13.4 % (18.3-44.2); Mean Corpuscular Hemoglobin 30.7 pg (26-34); Mean Corpuscular Volume 87.8 fl (80-100); Monocytes Absolute Auto 0.4 K/mm3 (0.1-0.6); Monocytes Percent Auto 7.3 % (2.6-8.5); Neutrophils Absolute Auto 3.5 K/mm3 (1.3-6.7); Neutrophils Percent Auto 63.1 % (45.5-73.1); Platelet Count Result 160 k/mm3 (150-375); Red Blood Count 3.45 M/mm3 (4.2-5.4); Red Cell Distribution Width 13.6 % (11.5-14.5); White Blood Count 5.5 K/mm3 (4.5-10.0)
[2020-11-18 06:00] VITALS: BP 151/76; PULSE 70; RESP 16; TEMP 36.6; O2SAT 98
[2020-11-18 06:13] LABS: Anion Gap 3 mmol/L (8-16); Blood Urea Nitrogen 24 mg/dL (7-17); Calcium 7.4 mg/dL (8.4-10.2); Carbon Dioxide 29 mmol/L (22-30); Chloride 106 mmol/L (98-107); Estimated CRCL calculation 43 ml/min; Estimated Glomerular Filt Rate 38; Glucose 90 mg/dL (65-105); Magnesium 0.9 mg/dL (1.6-2.3); Potassium 3.4 mmol/L (3.4-5.0); Sodium 138 mmol/L (137-145)
[2020-11-18 06:25] LABS: Ovalocytes 1+ (NORMAL); Platelet Estimate Adequate (Adequate)
[2020-11-18 06:26] LABS: Atypical Lymphocytes Present
[2020-11-18] MEDS: LEVOTHYROXINE SODIUM 150 MCG TABLET PO (06:57)
[2020-11-18] MEDS: buPROPion HCL SR (12HR) 100 MG TABCR 200 MG PO (09:05)
[2020-11-18] MEDS: CYANOCOBALAMIN 500 MCG TABLET PO (09:05)
[2020-11-18] MEDS: busPIRone HCL 5 MG TABLET 15 MG PO (09:05)
[2020-11-18] MEDS: DULoxetine HCL 60 MG CAPSULE.DR PO (09:05)
[2020-11-18] MEDS: CHOLECALCIFEROL 1,000 UNITS TABLET 2000 UNITS PO (09:05)
[2020-11-18] MEDS: AMITRIPTYLINE HCL 25 MG TABLET PO (09:05)
[2020-11-18] MEDS: MAGNESIUM SULF 2 GM/WATER 50ML 2 GM/50 ML BAG IVPB (09:12)
[2020-11-18 13:22] LABS: Magnesium 1.5 mg/dL (1.6-2.3)
[2020-11-18 13:32] VITALS: BP 143/66; PULSE 73; RESP 18; TEMP 36.3; O2SAT 100
[2020-11-18] MEDS: ACETAMINOPHEN 325 MG TABLET 650 MG PO (14:05)
[2020-11-18] MEDS: MAGNESIUM SULF 1 GM/D5W 100 ML 1 GM/100 ML BAG IVPB (14:08)
--- NOTE | 2020-11-18 15:54 | PM.DS ---
DS: Admitting Diagnosis Admitting Diagnosis Admitting Diagnosis: generalized weakness DS: Discharge Diagnosis Discharge Diagnosis (1) Generalized weakness: Code(s): R53.1 - Weakness Status: Acute Assessment and Plan: presented with acute onset of weakness ongoing for approximately 6 days which correlated with her last dose of chemotherapy. Weakness felt to be secondary to chemotherapy as well as chronic illness. She was found to be acutely dehydrated which was likely contributing. She was rehydrated with IV fluids and evaluated by PT/OT and felt to be consistent with her prior level of function. She did not have ongoing therapy requirements. Her weakness improved. (2) Acute dehydration: Code(s): E86.0 - Dehydration Status: Acute Assessment and Plan: Secondary to poor p.o. intake due to nausea, vomiting, and poor appetite secondary to recent chemotherapy. N/V resolved. As above, she was rehydrated with IV fluids. Her appetite improved and she was eating and drinking well. (3) Acute renal failure: Qualifiers: Acute renal failure type: unspecified Qualified Code(s): N17.9 - Acute kidney failure, unspecified Code(s): N17.9 - Acute kidney failure, unspecified Status: Acute Assessment and Plan: Likely prerenal in etiology secondary to acute dehydration. Baseline creatinine appears to be around 1.1. Creatinine elevated at 1.5 upon presentation and did demonstrate improvement with IV fluids. Discussed importance of maintaining adequate p.o. hydration. She will obtain repeat BMP to monitor renal function in 5 days. (4) Bladder cancer: Qualifiers: Bladder location: unspecified site Qualified Code(s): C67.9 - Malignant neoplasm of bladder, unspecified Code(s): C67.9 - Malignant neoplasm of bladder, unspecified Status: Chronic Assessment and Plan: Currently receiving chemotherapy at [facility]. Her oncologist was notified of her hospital admission. She has follow-up with her oncologist on 11/19/2020. (5) Multiple sclerosis: Code(s): G35 - Multiple sclerosis Status: Chronic Assessment and Plan: Stable. Continue home medication regimen. (6) HTN (hypertension): Qualifiers: Hypertension type: unspecified Qualified Code(s): I10 - Essential (primary) hypertension Code(s): I10 - Essential (primary) hypertension Status: Chronic Assessment and Plan: Blood pressure evaluated and remained stable. Continue home antihypertensives. (7) Depression: Qualifiers: Depression Type: unspecified Qualified Code(s): F32.9 - Major depressive disorder, single episode, unspecified Code(s): F32.9 - Major depressive disorder, single episode, unspecified Status: Chronic Assessment and Plan: Continue buspirone. (8) Hypothyroidism: Qualifiers: Hypothyroidism type: postoperative Qualified Code(s): E89.0 - Postprocedural hypothyroidism Code(s): E03.9 - Hypothyroidism, unspecified Status: Chronic Assessment and Plan: Continue levothyroxine. (9) Hypomagnesemia: Code(s): E83.42 - Hypomagnesemia Status: Acute Assessment and Plan: Magnesium was low, likely secondary to vomiting/poor PO intake and was supplemented. Magnesium levels improved. She will begin magnesium supplement bid and have levels rechecked in 5 days. DS: Summary Hospital Course Reason for hospitalization: generalized weakness Hospital Course: date of admission: 11/17/2020 date of discharge: 11/18/2020 Ena Duong is a 65-year-old female with a history bladder cancer currently undergoing chemotherapy, hypertension, depression, multiple sclerosis, and hypothyroidism who presented to the emergency department on 11/17/2020 with complaints of weakness and poor appetite ongoing x6 days after receiving chemothe
== END 2020-11-18 16:30 | disposition home or self-care (01) ==
LOC: ANHED 16:45 → ANH3MED 21:18
PROVIDERS: Physician Assistant; Admitting Provider Family Medicine; Emergency Provider Emergency Medicine; PCP Internal Medicine; Visit Provider Family Medicine
DX: E86.0 Dehydration (principal); R53.1 Weakness; E66.9 Obesity, unspecified; C67.9 Malignant neoplasm of bladder, unspecified; N17.9 Acute kidney failure, unspecified; E03.9 Hypothyroidism, unspecified; E83.42 Hypomagnesemia; F32.9 Major depressive disorder, single episode, unspecified; G35 Multiple sclerosis; I10 Essential (primary) hypertension; K59.00 Constipation, unspecified; R29.6 Repeated falls; Z68.34 Body mass index [BMI] 34.0-34.9, adult; Z87.891 Personal history of nicotine dependence
CPT/HCPCS: 36415; 70496; 70498; 80048; 80053; 81001; 83735; 85025; 87040; 96361; 96365; 96366; 96374; 96375; 97161; 97165; 99285; A9270; G0378; J2405; J3475; J7030; Q9967